=== PATIENT | female | born 1990 | race African-American/Black ===

== ENCOUNTER 2017-12-19 10:44 | Emergency (ER) | payer SELFPAY ==
[~2017-12-19] VITALS: Ht 162.6 cm; Wt 118.2 kg
[2017-12-19 10:48] VITALS: TEMP 99
[2017-12-19 11:12] LABS: COLLECTION METHOD CLEAN CATCH
[2017-12-19 11:17] LABS: BASO # 0.1 (0.0-0.2); BASO % 0.7 % (0.0-2.0); EOS # 0.1 (0.0-0.7); EOS % 1.7 % (0-4.0); GRAN # 3.8 (1.4-6.5); GRAN % 49.7 % (42.2-75.2); HEMATOCRIT 41.4 % (37.0-47.0); HEMOGLOBIN 13.8 g/dl (12.5-16.0); LYMPH % 39.8 % (20.0-51.0); MEAN CELL VOLUME 92 fl (80.0-100.0); MEAN CORPUSCULAR HEMOGLOBIN 31 pg (27.0-31.0); MEAN CORPUSCULAR HGB CONC 33 g/dl (33.0-37.0); MEAN PLATELET VOLUME 9.1 fl (7.4-10.4); MONO # 0.6 (0.1-0.6); MONO % 7.8 % (1.7-9.3); PLATELET COUNT 363 K/mm3 (130-400); RED BLOOD COUNT 4.49 M/mm3 (4.10-5.30)
[2017-12-19 11:27] LABS: MUCOUS Present /lpf; PH 6 (5-8); URINE APPEARANCE Hazy; URINE BACTERIA None Seen /hpf; URINE BILIRUBIN Negative (NEGATIVE); URINE BLOOD 2+ (NEGATIVE); URINE COLOR Yellow; URINE GLUCOSE Negative (NEGATIVE); URINE KETONE Negative (NEGATIVE); URINE LEUKOCYTE ESTERASE 3+ (NEGATIVE); URINE NITRATE Negative (NEGATIVE); URINE PROTEIN(semi-quant) 2+ (NEGATIVE); URINE UROBILINOGEN Negative (NEGATIVE)
[2017-12-19 11:33] LABS: ALBUMIN 4.6 gm/dL (3.5-5.0); BILIRUBIN,TOTAL 0.7 mg/dL (0.0-1.0); C-REACTIVE PROTEIN 5.2 mg/dL (0.0-0.9); CALCIUM 9.8 mg/dL (8.4-10.2); CREATININE, serum 1.03 mg/dL (0.52-1.25); POTASSIUM 4.2 mmol/L (3.4-5.0); TOTAL PROTEIN 9.1 gm/dL (6.4-8.2)
[2017-12-19] MEDS ORDERED: NORCO 325 MG-51 TAB PO (13:47)
[2017-12-19] MEDS ORDERED: COZAAR 50MG50 MG/TAB PO (13:47)
[2017-12-19] MEDS ORDERED: CEPHALEXIN500 M1 PO (13:47)
[2017-12-19 14:00] VITALS: BP 136/90; PULSE 84
== END 2017-12-19 14:02 | disposition home or self-care (01) ==
LOC: COL.ER 10:44
PROVIDERS: Physician Assistant
DX: N39.0 Urinary tract infection, site not specified (principal); I10 Essential (primary) hypertension; F12.90 Cannabis use, unspecified, uncomplicated
CPT/HCPCS: J0696; J1170; J2405; J7030; Q9967

== ENCOUNTER 2018-05-19 16:37 | Emergency (ER) | payer OTHER ==
[~2018-05-19] VITALS: Ht 162.6 cm; Wt 100.0 kg
[~2018-05-19 16:37] MED LIST: CEPHALEXIN500 M1 PO; COZAAR 50MG50 MG/TAB PO; NORCO 325 MG-51 TAB PO
[2018-05-19 16:41] VITALS: TEMP 98.2
[2018-05-19 17:09] LABS: COLLECTION METHOD CLEAN CATCH
[2018-05-19 17:30] LABS: BASO # 0.1 (0.0-0.2); BASO % 0.8 % (0.0-2.0); EOS # 0.3 (0.0-0.7); GRAN # 3.3 (1.4-6.5); GRAN % 53.7 % (42.2-75.2); HEMATOCRIT 42.5 % (37.0-47.0); HEMOGLOBIN 14.5 g/dl (12.5-16.0); LYMPH # 2.1 (1.2-3.4); LYMPH % 34.7 % (20.0-51.0); MEAN CELL VOLUME 91 fl (80.0-100.0); MEAN CORPUSCULAR HEMOGLOBIN 31 pg (27.0-31.0); MEAN CORPUSCULAR HGB CONC 34 g/dl (33.0-37.0); MEAN PLATELET VOLUME 9.3 fl (7.4-10.4); MONO # 0.3 (0.1-0.6); MONO % 5.5 % (1.7-9.3); PLATELET COUNT 351 K/mm3 (130-400); RED BLOOD COUNT 4.65 M/mm3 (4.10-5.30); REDCELL DISTRIBUTION WIDTH-CV 12.7 % (11.5-14.5)
[2018-05-19 17:32] LABS: MUCOUS Present /lpf; PH 6 (5-8); URINE APPEARANCE Hazy; URINE BACTERIA Rare /hpf; URINE BILIRUBIN Negative (NEGATIVE); URINE BLOOD 1+ (NEGATIVE); URINE COLOR Yellow; URINE GLUCOSE Negative (NEGATIVE); URINE KETONE Negative (NEGATIVE); URINE LEUKOCYTE ESTERASE Negative (NEGATIVE); URINE NITRATE Negative (NEGATIVE); URINE PROTEIN(semi-quant) 2+ (NEGATIVE); URINE UROBILINOGEN Negative (NEGATIVE)
[2018-05-19 17:40] LABS: ALBUMIN 4.3 gm/dL (3.5-5.0); BILIRUBIN,TOTAL 0.9 mg/dL (0.0-1.0); C-REACTIVE PROTEIN 0.6 mg/dL (0.0-0.9); CALCIUM 9.6 mg/dL (8.4-10.2); CREATININE, serum 1.19 mg/dL (0.52-1.25)
[2018-05-19] MEDS ORDERED: COZAAR100 MG PO (18:42)
[2018-05-19 20:04] VITALS: BP 122/84; PULSE 84
== END 2018-05-19 20:11 | disposition home or self-care (01) ==
LOC: COL.ER 16:37
PROVIDERS: Family Medicine
DX: I10 Essential (primary) hypertension (principal); R10.11 Right upper quadrant pain; R07.81 Pleurodynia; F17.210 Nicotine dependence, cigarettes, uncomplicated
CPT/HCPCS: J2270; J2405; J7030

== ENCOUNTER 2018-07-31 19:23 | Inpatient (IN) | payer SELFPAY | END 2018-08-02 17:00 | disposition home or self-care (01) | DRG 305 | LOC: COL.ER 19:23 → ICU 21:14 → MEDICAL 08-01 18:18 | PROVIDERS: ADMIT Internal Medicine | DX: I16.0 Hypertensive urgency (principal); I50.32 Chronic diastolic (congestive) heart failure; Z68.41 Body mass index [BMI] 40.0-44.9, adult; I11.0 Hypertensive heart disease with heart failure; J09.X2 Influenza due to identified novel influenza A virus with other respiratory manifestations; E66.01 Morbid (severe) obesity due to excess calories; Z23 Encounter for immunization; F17.210 Nicotine dependence, cigarettes, uncomplicated ==

== ENCOUNTER 2019-02-09 07:24 | Inpatient (IN) | payer OTHER ==
[2019-02-09] VITALS (13 sets, daily range): BP systolic 116–159; BP diastolic 86–116; PULSE 73–91; TEMP 97.8–98
[~2019-02-09] VITALS: Ht 162.6 cm; Wt 118.5 kg
[~2019-02-09 07:24] MED LIST changes: +COREG 6.256.25 MG/TA PO; +COREG12.5 MG PO; +COZAAR100 MG PO; +HCTZ12.5TAB PO; +NORVASC 10MG10 MG PO; +NORVASC 5MG5 MG/TAB PO; +TAMIFLU 75MG75 MG PO
[2019-02-09 08:36] LABS: BASO # 0.1 (0.0-0.2); BASO % 1.3 % (0.0-2.0); EOS # 0.4 (0.0-0.7); GRAN # 3.4 (1.4-6.5); GRAN % 54.1 % (42.2-75.2); HEMATOCRIT 40.2 % (37.0-47.0); HEMOGLOBIN 13.5 g/dl (12.5-16.0); LYMPH # 2.1 (1.2-3.4); LYMPH % 33.9 % (20.0-51.0); MEAN CELL VOLUME 94 fl (80.0-100.0); MEAN CORPUSCULAR HEMOGLOBIN 32 pg (27.0-31.0); MEAN CORPUSCULAR HGB CONC 34 g/dl (33.0-37.0); MEAN PLATELET VOLUME 8.7 fl (7.4-10.4); MONO # 0.3 (0.1-0.6); MONO % 4.4 % (1.7-9.3); PLATELET COUNT 290 K/mm3 (130-400); RED BLOOD COUNT 4.27 M/mm3 (4.10-5.30); REDCELL DISTRIBUTION WIDTH-CV 13.1 % (11.5-14.5)
[2019-02-09 08:41] LABS: INR 1.1 (0.8-3.0); PROTHROMBIN TIME 12.4 SECONDS (9.7-12.8)
[2019-02-09 08:45] LABS: ALANINE AMINOTRANSFERASE 40 U/L (9-52); ALBUMIN 4.3 gm/dL (3.5-5.0); ALKALINE PHOSPHATASE 76 U/L (50-136); ANION GAP 9 mmol/L (7-16); AST,SGOT 38 U/L (15-37); BILIRUBIN,TOTAL 0.8 mg/dL (0.0-1.0); BLOOD UREA NITROGEN 20 mg/dL (7-17); CALCIUM 9.1 mg/dL (8.4-10.2); CARBON DIOXIDE 23 mmol/L (22-30); CHLORIDE 108 mmol/L (98-107); CREATININE, serum 1.03 (0.52-1.25); GLUCOSE 104 mg/dL (74-106); POTASSIUM 4.3 mmol/L (3.4-5.0); SODIUM 139 mmol/L (137-145); TOTAL PROTEIN 7.8 gm/dL (6.4-8.2)
[2019-02-09 09:00] LABS: TROPONIN-I < 0.012 ng/mL (0.000-0.035)
--- NOTE | 2019-02-09 10:40 | NUR ---
Patient transferred to ICU4 via ED stretcher by AMNA Diana with no complications. Patient able to ambulate from stretcher to bed independently with no complications. IV lines/medication gtts assessed and secured. Full assessment completed. Patient has no complaints or concerns at this time. Call light and room phone placed within reach. Bed in lowest position. Side rails up x3.
--- NOTE | 2019-02-09 16:47 | NUR ---
Report called to AMNA Kapadia at this time.
--- NOTE | 2019-02-09 18:11 | NUR ---
Patient transfered to surgical bed 348 via wheelchair with no complications. Bed in lowest position. Side rails up x2. Call light given to patient. Personal belongings stored in closet at this time. Care handed off to AMNA Kapadia.
--- NOTE | 2019-02-09 18:33 | NUR ---
PATIENT ARRIVED TO UNIT AT 1805 FROM ICU. PATIENT HAS DX OF HYPERTENSION. PATIENT IS ALERT AND ORIENTED. VSS. PATIENT HAS 20G IV IN RIGHT HAND AND 20G IV IN LEFT AC. PATIENT HEART AND LUNG SOUNDS NORMAL. PATIENT DENIES PAIN AT THIS TIME. PATIENT ON 2L RESTRICTION WITH 500ML BEING WATER. PER ICU, PATIENT HAS ALREADY TAKEN IN 500ML OF WATER. PATIENT TO HAVE GARTORADE FOR REST OF SHIFT TO EQUAL 2L. PATIENT PLEASANT IN ROOM WITH DINNER ORDERED.
--- NOTE | 2019-02-09 22:00 | NUR ---
Pt. sitting up in bed at this time. Pt. is A&OX3, assessment complete. INT to lt. ac and rt. forearm patent. Pt. denies pain or other needs, call light within reach.
[2019-02-10 00:11] VITALS: BP 137/85; PULSE 69; TEMP 98
--- NOTE | 2019-02-10 06:23 | NUR ---
Pt. slept well through the night. Pt. remains A&OX3. INT's to lt. ac and rt. forearm patent. Pt. denies pain or other needs.
[2019-02-10 07:31] LABS: CREATININE, serum 1.04 (0.52-1.25); MAGNESIUM 2.1 mg/dL (1.6-2.3); POTASSIUM 3.5 mmol/L (3.4-5.0)
[2019-02-10 08:43] VITALS: BP 143/94; PULSE 72; TEMP 98.1
[2019-02-10] MEDS ORDERED: COREG12.5 MG PO (09:29)
[2019-02-10] MEDS ORDERED: COZAAR100 MG PO (09:29)
[2019-02-10] MEDS ORDERED: NORVASC 5MG5 MG/TAB PO (09:29)
[2019-02-10] MEDS ORDERED: HCTZ12.5TAB PO (09:30)
--- NOTE | 2019-02-10 09:49 | NUR ---
MARK attended clinical rounds. The patient is ready to discharge today, 02/10. The hospitalist discussed getting established with primary care. The patient reports that she would be interested with being set up at the [facility] in [place]. MARK then followed up with the patient to discuss discharge plan. The patient lives in [place] with her grandmother, Jacquelyn Quiñonez (ph#[phone]), and works at [email or web address]. She reports independence with ADLs and does not have any DME. The patient did not have primary care prior to hospitalization and she receives her medications at the [facility]. She reports that she was having difficulties affording one of her medications prior. The patient is self pay. MARK consulted Financial Counseling. The patient was prescribed four meds. MARK contacted the patient's preferred pharmacy and priced the meds. Total: $30.98. The patient reports that she is able to afford this. MARK then contacted [facility] in [place] and secured the patient and appointment for next Saturday, 02/16, 1599. MARK informed the patient and the community living coach of the appointment. MARK provided the patient with [facility]'s registration packet. MARK faxed the patient's medical records and discharge orders to [facility]. The patient plans to return back home with her grandmother upon discharge. No additional needs at this time. The patient plans to return home with her grandmother upon discharge.
--- NOTE | 2019-02-10 11:04 | NUR ---
Discharge instructions reviewed with patient, verbalized understanding. Discharged via wheelchair to auto/home at 1105.
== END 2019-02-10 11:05 | disposition home or self-care (01) | DRG 305 ==
LOC: COL.ER 07:24 → ICU 09:19 → SURG 18:09
PROVIDERS: Family Medicine; ADMIT Internal Medicine
DX: I16.0 Hypertensive urgency (principal); I50.32 Chronic diastolic (congestive) heart failure; Z68.41 Body mass index [BMI] 40.0-44.9, adult; I11.0 Hypertensive heart disease with heart failure; E66.01 Morbid (severe) obesity due to excess calories
CPT/HCPCS: 99223-AI; 99239; J1644; J1940; J7050

== ENCOUNTER 2021-09-12 03:13 | Emergency (ER) | payer OTHER ==
[~2021-09-12] VITALS: Ht 160 cm; Wt 113.6 kg
[2021-09-12 03:21] VITALS: TEMP 98
[2021-09-12] MEDS ORDERED: ZITHROMAX Z PA250 MG PO (03:59)
[2021-09-12] MEDS ORDERED: PROAIR HFA0.09 MG/AC IH (03:59)
[2021-09-12] MEDS ORDERED: PREDNISONE20 MG PO (03:59)
[2021-09-12 04:14] VITALS: BP 122/91; PULSE 105
== END 2021-09-12 04:20 | disposition home or self-care (01) ==
LOC: COL.ER 03:13
DX: J40 Bronchitis, not specified as acute or chronic (principal); Z87.891 Personal history of nicotine dependence
CPT/HCPCS: J7512

== ENCOUNTER 2021-12-27 05:43 | Emergency (ER) | payer OTHER ==
[~2021-12-27] VITALS: Ht 160 cm; Wt 113.6 kg
[~2021-12-27 05:43] MED LIST changes: +PREDNISONE20 MG PO; +PROAIR HFA0.09 MG/AC IH; +ZITHROMAX Z PA250 MG PO
[2021-12-27 06:02] VITALS: TEMP 99.3
[2021-12-27 06:36] LABS: COLLECTION METHOD CLEAN CATCH
[2021-12-27 07:00] LABS: MUCOUS Present (NOT PRESENT); PH 6 (5-8); URINE APPEARANCE Hazy (CLEAR/HAZY); URINE BACTERIA Occasional /hpf (NONE SEEN); URINE BLOOD Negative (NEGATIVE); URINE COLOR Yellow (YELLOW); URINE GLUCOSE Negative (NEGATIVE); URINE KETONE Negative (NEGATIVE); URINE NITRATE Negative (NEGATIVE); URINE PROTEIN(semi-quant) 2+ (NEGATIVE)
[2021-12-27] MEDS ORDERED: PAXLOVID CO-PA1 EACH PO (07:09)
[2021-12-27 08:01] VITALS: BP 173/125; PULSE 111
[2021-12-28] MEDS ORDERED: APRESOLINE 25MG25 MG PO (09:35)
[2021-12-28] MEDS ORDERED: COREG 6.256.25 MG/TA PO (09:35)
[2021-12-28] MEDS ORDERED: COZAAR100 MG PO (09:36)
[2021-12-28] MEDS ORDERED: NORVASC 5MG5 MG/TAB PO (09:36)
[2021-12-28] MEDS ORDERED: MUCINEX DM 30 M1 TE1 PO (09:36)
[2021-12-28] MEDS ORDERED: TESSALON P100 MG/CAP PO (09:36)
[2021-12-28] MEDS ORDERED: DECADRON6 MG PO (09:37)
[2021-12-28] MEDS ORDERED: LIPITOR 40MG TA40 MG PO (09:44)
== END 2021-12-27 08:13 | disposition home or self-care (01) ==
LOC: COL.ER 05:43
PROVIDERS: Family Medicine
DX: U07.1 COVID-19 (principal); N89.8 Other specified noninflammatory disorders of vagina; I10 Essential (primary) hypertension; Z87.891 Personal history of nicotine dependence; Z91.14 Patient's other noncompliance with medication regimen; Z79.899 Other long term (current) drug therapy; Z28.310 Unvaccinated for COVID-19
CPT/HCPCS: J0696

== ENCOUNTER 2021-12-27 12:26 | Observation (INO) | payer OTHER ==
[~2021-12-27] VITALS: Ht 160 cm; Wt 113.6 kg
[~2021-12-27 12:26] MED LIST changes: +PAXLOVID CO-PA1 EACH PO
[2021-12-27 13:36] LABS: CALCIUM 9.1 mg/dL (8.4-10.2); CREATININE, serum 1.19 mg/dL (0.57-1.11); POTASSIUM 3.8 mmol/L (3.5-4.5)
[2021-12-27 14:49] LABS: BASO # 0.1 K/mm3 (0.0-0.2); EOS % 0.6 % (0.0-4.0); GRAN # 3.6 K/mm3 (1.4-6.5); GRAN % 74.8 % (42.2-75.2); HEMATOCRIT 41.4 % (37.0-47.0); HEMOGLOBIN 13.7 g/dl (12.5-16.0); LYMPH # 0.5 K/mm3 (1.2-3.4); MEAN CELL VOLUME 92 fl (80.0-100.0); MEAN CORPUSCULAR HEMOGLOBIN 31 pg (27-31); MEAN CORPUSCULAR HGB CONC 33 g/dl (33.0-37.0); MONO # 0.6 K/mm3 (0.1-0.6); MONO % 12.2 % (1.7-9.3); PLATELET COUNT 274 K/mm3 (130-400); RED BLOOD COUNT 4.48 M/mm3 (4.10-5.30); REDCELL DISTRIBUTION WIDTH-CV 13.2 % (11.5-14.5)
[2021-12-27 16:29] LABS: ALBUMIN 3.7 gm/dL (3.5-5.0); BILIRUBIN,TOTAL 1.3 mg/dL (0.2-1.2); C-REACTIVE PROTEIN 0.72 mg/dL (0.00-0.50); MAGNESIUM 1.9 mg/dL (1.6-2.6); TOTAL PROTEIN 7.5 gm/dL (6.2-8.1)
[2021-12-27 16:50] LABS: THYROID STIMULATING HORMONE 1.555 uIU/mL (0.350-4.940)
[2021-12-27 17:04] LABS: BILIRUBIN,DIRECT 0.4 mg/dL (0.0-0.5)
[2021-12-27 18:41] VITALS: BP 160/122; PULSE 97; TEMP 99.2
[2021-12-27 20:00] VITALS: BP 166/119; PULSE 93; TEMP 98.2
[2021-12-28 00:54] VITALS: BP 136/84; PULSE 75; TEMP 98.7
[2021-12-28 01:17] LABS: TRICYCLIC ANTIDEPRESS URINE NEGATIVE
[2021-12-28 04:59] VITALS: BP 152/99; PULSE 74; TEMP 97.9
--- NOTE | 2021-12-28 06:27 | NUR ---
pt weaned to RA, up ad yeny in room. BP down to 136/84 after meds given @HS, urine screen sent to lab, no stool specimen yet
[2021-12-28 08:02] VITALS: BP 149/95; PULSE 80; TEMP 98.1
[2021-12-28 09:00] LABS: CHOLESTEROL RISK RATIO 5.6
[2021-12-28] MEDS ORDERED: APRESOLINE 25MG25 MG PO (09:35)
[2021-12-28] MEDS ORDERED: COREG 6.256.25 MG/TA PO (09:35)
[2021-12-28] MEDS ORDERED: MUCINEX DM 30 M1 TE1 PO (09:36)
[2021-12-28] MEDS ORDERED: NORVASC 5MG5 MG/TAB PO (09:36)
[2021-12-28] MEDS ORDERED: COZAAR100 MG PO (09:36)
[2021-12-28] MEDS ORDERED: TESSALON P100 MG/CAP PO (09:36)
[2021-12-28] MEDS ORDERED: DECADRON6 MG PO (09:37)
[2021-12-28] MEDS ORDERED: LIPITOR 40MG TA40 MG PO (09:44)
[2021-12-28 10:35] LABS: CLOSTRIDIUM DIFF A/B NEG; CLOSTRIDIUM DIFF A/B INTERP No C.diff present
== END 2021-12-28 15:34 | disposition home or self-care (01) ==
LOC: COL.ER 12:26 → MEDICAL 16:13
PROVIDERS: Nurse Practitioner Family; Personal Emergency Response Attendant; ADMIT Family Medicine
DX: J96.01 Acute respiratory failure with hypoxia (principal); I42.9 Cardiomyopathy, unspecified; I10 Essential (primary) hypertension; E78.5 Hyperlipidemia, unspecified; R19.7 Diarrhea, unspecified; I34.0 Nonrheumatic mitral (valve) insufficiency; F17.210 Nicotine dependence, cigarettes, uncomplicated
CPT/HCPCS: G0378; J1100; J1200; J1650; J1940; J2550; J3475; J8540; Q0222; Q9967

== ENCOUNTER 2023-08-13 10:15 | Inpatient (IN) | payer SELFPAY ==
[~2023-08-13] VITALS: Ht 162.7 cm; Wt 130.8 kg
[2023-08-13] VITALS (39 sets, daily range): BP systolic 112–205; BP diastolic 68–149; PULSE 83–105; TEMP 97.5–97.7; O2SAT 93–100
[~2023-08-13 10:15] MED LIST changes: +APRESOLINE 25MG25 MG PO; +DECADRON6 MG PO; +LIPITOR 40MG TA40 MG PO; +MUCINEX DM 30 M1 TE1 PO; +TESSALON P100 MG/CAP PO
[2023-08-13] MEDS ORDERED: Losartan 50 MG TAB PO ONE (11:45)
[2023-08-13] MEDS ORDERED: hydrALAZINE 10 MG TAB PO ONE (11:45)
[2023-08-13 13:30] LABS: BASO # 0.1 K/mm3 (0.0-0.2); EOS # 0.2 K/mm3 (0.0-0.7); EOS % 2.6 % (0.0-4.0); GRAN # 3.1 K/mm3 (1.4-6.5); GRAN % 53.7 % (42.2-75.2); HEMATOCRIT 42.3 % (37.0-47.0); HEMOGLOBIN 14.2 g/dl (12.5-16.0); LYMPH # 2.1 K/mm3 (1.2-3.4); LYMPH % 35.4 % (20.0-51.0); MEAN CELL VOLUME 96 fl (80.0-100.0); MEAN CORPUSCULAR HEMOGLOBIN 32 pg (27-31); MEAN CORPUSCULAR HGB CONC 34 g/dl (33.0-37.0); MEAN PLATELET VOLUME 8.8 fl (7.4-10.4); MONO # 0.4 K/mm3 (0.1-0.6); MONO % 6.8 % (1.7-9.3); PLATELET COUNT 274 K/mm3 (130-400); RED BLOOD COUNT 4.43 M/mm3 (4.10-5.30); REDCELL DISTRIBUTION WIDTH-CV 13.2 % (11.5-14.5)
[2023-08-13] MEDS ORDERED: Nitroglycerin/D5W 250 ML IV ONE (13:30)
[2023-08-13 13:50] LABS: ALBUMIN 3.7 gm/dL (3.5-5.0); BILIRUBIN,TOTAL 1.4 mg/dL (0.2-1.2); CALCIUM 9.3 mg/dL (8.4-10.2); CREATININE, serum 1.08 mg/dL (0.57-1.11); POTASSIUM 4.2 mmol/L (3.5-4.5); TOTAL PROTEIN 7.2 gm/dL (6.2-8.1)
[2023-08-13] MEDS ORDERED: *Potassium Replacement Protocol MC SCH (15:45)
--- NOTE | 2023-08-13 16:05 | NUR ---
Pt arrived to room ICU 2 at 1526. Pt ambulated from stretcher to bed without difficulty. Pt states she is coughing up some blood that started about 2 days ago. Pt states she started coughing about a week ago. Pt has nitro infusing on arrival. Pt has some 1+ edmea to BLE. BP remains elevated. Cardio consulted per orders. Pt oriented to room. Educated pt to call prior to getting out of bed. Pt vebalized understanding. Call light within reach. Will continue with POC.
[2023-08-13] MEDS ORDERED: Furosemide 40 MG/4 ML VIAL IV SCH (16:11)
[2023-08-13] MEDS ORDERED: Carvedilol 6.25 MG TAB PO SCH (17:00)
--- NOTE | 2023-08-13 20:16 | NUR ---
PT IS SITTING ON THE EDGE OF THE BED. SHE HAD JUST RETURNED FROM THE BEDSIDE COMMODE. SHE IS ALERT AND ORIENTED AND ABLE TO USE THE BEDSIDE COMMODE INDEPENDENTLY. SHE HAS NITRO INFUSING IN 20G LEFT AC. SARMAD OBRIEN IS AT THE BEDSIDE AND HAS NO COMPLAINTS AT THIS TIME.
[2023-08-13] MEDS ORDERED: Atorvastatin 40 MG TAB PO SCH (23:00)
[2023-08-14] VITALS (16 sets, daily range): BP systolic 126–172; BP diastolic 76–119; PULSE 74–95; TEMP 97.8–98.2; O2SAT 99
[2023-08-14] MEDS ORDERED: Acetaminophen 325 MG TAB PO PRN (03:15)
[2023-08-14 06:19] LABS: BASO % 0.4 % (0.0-2.0); EOS # 0.2 K/mm3 (0.0-0.7); EOS % 2.2 % (0.0-4.0); GRAN # 5.9 K/mm3 (1.4-6.5); GRAN % 72.9 % (42.2-75.2); HEMOGLOBIN 12.4 g/dl (12.5-16.0); LYMPH # 1.3 K/mm3 (1.2-3.4); LYMPH % 15.7 % (20.0-51.0); MEAN CELL VOLUME 93 fl (80.0-100.0); MEAN CORPUSCULAR HEMOGLOBIN 31 pg (27-31); MEAN CORPUSCULAR HGB CONC 34 g/dl (33.0-37.0); MONO # 0.7 K/mm3 (0.1-0.6); MONO % 8.4 % (1.7-9.3); PLATELET COUNT 274 K/mm3 (130-400); RED BLOOD COUNT 3.96 M/mm3 (4.10-5.30); REDCELL DISTRIBUTION WIDTH-CV 13.2 % (11.5-14.5)
[2023-08-14 06:23] LABS: HEMATOCRIT 36.8 % (37.0-47.0)
[2023-08-14 06:34] LABS: ALBUMIN 3.3 gm/dL (3.5-5.0); CALCIUM 9.3 mg/dL (8.4-10.2); CREATININE, serum 1.18 mg/dL (0.57-1.11); MAGNESIUM 1.8 mg/dL (1.6-2.6); PHOSPHOROUS 3.4 mg/dL (2.3-4.7); POTASSIUM 3.9 mmol/L (3.5-4.5)
--- NOTE | 2023-08-14 07:24 | NUR ---
Report recieved from AMNA Lo. Pt remains on Nitro gtt. Pt had uneventful night. Pt able to get up and go to commode independently. Call light within reach. Will continue with POC.
[2023-08-14] MEDS ORDERED: Nitroglycerin/D5W 250 ML IV SCH (08:30)
[2023-08-14] MEDS ORDERED: Carvedilol 25 MG TAB PO SCH (08:45)
[2023-08-14] MEDS ORDERED: Spironolactone 25 MG TAB PO SCH (08:45)
[2023-08-14] MEDS ORDERED: amLODIPine 5 MG TAB PO SCH (09:00)
[2023-08-14] MEDS ORDERED: Losartan 50 MG TAB PO SCH (09:00)
[2023-08-14] MEDS ORDERED: Furosemide 40 MG/4 ML VIAL IV SCH (09:00)
[2023-08-14] MEDS ORDERED: hydroCHLOROthiazide 12.5 MG CAP PO SCH (09:00)
[2023-08-14] MEDS ORDERED: Potassium Bicarbonate/Citrate 20 MEQ Effervescent TAB PO ONE (09:00)
[2023-08-14] MEDS ORDERED: amLODIPine 5 MG TAB PO ONE (09:30)
[2023-08-14] MEDS ORDERED: hydrALAZINE 25 MG TAB PO SCH (09:30)
--- NOTE | 2023-08-14 09:53 | NUR ---
mortar worker and Dr. Bah met with patient during interdisciplinary rounding. Patient will need to see cardiology for additional testing prior to discharge. SW met with patient to discuss discharge planning. Patient lives in [place]. Best point of contact is sister, Fiona, P# [phone] and Jacquelyn (grandmother) P# [phone]. PCP is Brendon, pharmacy is [facility]. No issues affording medications. Patient did not have a DPOA-HC but was interested in completing one. SW assisted patient with the form, patient appointed Fiona as primary and Nigel (boyfriend) as secondary. RN and SW witnessed patient signature. SW made copies, placed copy in chart, provided original and copies to patient. No DME, independent with ADLS. Patient transports herself to and from appointments. Patient would like to return home at time of discharge. Discharge plan: Home
--- NOTE | 2023-08-14 10:01 | NUR ---
Patient informed transition social worker that she has [facility] insurance. SW notified financial counselor and nanny/household manager as patient was currently listed as self-pay. Discharge plan: Home
[2023-08-14 13:25] LABS: HIV 1/2 Antibodies Non-Reactive; HIV-1p24 Antigen Non-Reactive
--- NOTE | 2023-08-14 14:15 | NUR ---
Initial visit; Patient thanked Rubber Press Operator for looking in on her and smiled at Rubber Press Operator when she said she is available for her.
--- NOTE | 2023-08-14 17:15 | NUR ---
Report received from TRADE SHOW SPECIALIST Silvia. Pt up to room at this time. A/O x4, steady gait around room independent, tolerating deit well. No needs at this time, will continue to monitor.
--- NOTE | 2023-08-14 17:15 | NUR ---
Report called to AMNA De Souza. All questions answered. Pt escroted to room 318 via wheelchair. Nolvia met pt in room.
--- NOTE | 2023-08-14 20:00 | NUR ---
Initial shift assessment done- sitting at side of bed-- getting ready to shower/walks independently,steady on feet, VSS, pleasant, no requests, Will be NPO after MN for jagjit in AM, tele on-NSR,,B/p stable.
[2023-08-15] VITALS (8 sets, daily range): BP systolic 124–146; BP diastolic 79–96; PULSE 76–94; TEMP 97.4–98.5
[2023-08-15 05:33] LABS: BASO % 0.5 % (0.0-2.0); EOS # 0.4 K/mm3 (0.0-0.7); EOS % 5.9 % (0.0-4.0); GRAN # 3.3 K/mm3 (1.4-6.5); GRAN % 51.5 % (42.2-75.2); HEMOGLOBIN 13.1 g/dl (12.5-16.0); LYMPH # 2.1 K/mm3 (1.2-3.4); LYMPH % 33.1 % (20.0-51.0); MEAN CELL VOLUME 92 fl (80.0-100.0); MEAN CORPUSCULAR HEMOGLOBIN 32 pg (27-31); MEAN CORPUSCULAR HGB CONC 35 g/dl (33.0-37.0); MEAN PLATELET VOLUME 8.8 fl (7.4-10.4); MONO # 0.6 K/mm3 (0.1-0.6); MONO % 8.7 % (1.7-9.3); PLATELET COUNT 278 K/mm3 (130-400); RED BLOOD COUNT 4.13 M/mm3 (4.10-5.30); REDCELL DISTRIBUTION WIDTH-CV 13.2 % (11.5-14.5)
[2023-08-15 05:49] LABS: ALBUMIN 3.1 gm/dL (3.5-5.0); CALCIUM 9.4 mg/dL (8.4-10.2); CREATININE, serum 1.17 mg/dL (0.57-1.11); MAGNESIUM 1.9 mg/dL (1.6-2.6); POTASSIUM 3.9 mmol/L (3.5-4.5)
--- NOTE | 2023-08-15 05:52 | NUR ---
Quiet night- slept well all night- Tele on,, NPO for jagjit
--- NOTE | 2023-08-15 07:32 | NUR ---
upon entering room patient is lying on her right side sleeping. after patient woke up head to toe assessment and vital signs were complete. patient complained of a slight headache and rated the pain a 2/10, primary nurse was notified. and before leaving room patients bed was placed in lowest position and call light within reach.
[2023-08-15] MEDS ORDERED: Spironolactone 25 MG TAB PO SCH (08:00)
[2023-08-15] MEDS ORDERED: Regadenoson 0.08 MG/ML 5 ML SYRINGE IV SCH (08:45)
[2023-08-15] MEDS ORDERED: amLODIPine 10 MG TAB PO SCH (09:00)
[2023-08-15] MEDS ORDERED: amLODIPine 5 MG TAB PO SCH (09:22)
--- NOTE | 2023-08-15 11:39 | NUR ---
hog worker spoke with Tune Up Mechanic Delores who reports she will meet with patient to discuss disability. SW spoke with RADHA Quintana who reports patient terminated her insurance on 06/10/23, so she does not have [facility]. Discharge Plan: Home
[2023-08-15] MEDS ORDERED: Potassium Bicarbonate/Citrate 20 MEQ Effervescent TAB PO ONE (12:00)
[2023-08-15] MEDS ORDERED: APRESOLINE 25MG25 MG PO (12:31)
[2023-08-15] MEDS ORDERED: ISORDIL 20MG20 M1 PO (12:31)
[2023-08-15] MEDS ORDERED: COREG 25MG25 MG/TAB PO (12:31)
[2023-08-15] MEDS ORDERED: ALDACTONE 25MG25 M1 PO (12:32)
[2023-08-15] MEDS ORDERED: LASIX 40MG TABL40 MG PO (12:32)
[2023-08-15] MEDS ORDERED: Isosorbide Dinitrate 10 MG TAB PO SCH (14:00)
[2023-08-16 04:10] LABS: ANGIOTENSIN CONVERTING ENZYME 27 U/L (14-82)
[2023-08-16] MEDS ORDERED: Furosemide 40 MG TAB PO SCH (09:00)
== END 2023-08-15 16:37 | disposition home or self-care (01) | DRG 291 ==
LOC: COL.ER 10:15 → ICU 13:20 → MEDICAL 08-14 16:30
PROVIDERS: Nurse Practitioner; Physician Assistant; ADMIT Internal Medicine
DX: I11.0 Hypertensive heart disease with heart failure (principal); I50.23 Acute on chronic systolic (congestive) heart failure; J96.01 Acute respiratory failure with hypoxia; I16.1 Hypertensive emergency; R04.2 Hemoptysis; Z68.43 Body mass index [BMI] 50.0-59.9, adult; Z20.822 Contact with and (suspected) exposure to COVID-19; I34.0 Nonrheumatic mitral (valve) insufficiency; E78.5 Hyperlipidemia, unspecified; E66.01 Morbid (severe) obesity due to excess calories; Z87.442 Personal history of urinary calculi; Z87.891 Personal history of nicotine dependence; Z79.899 Other long term (current) drug therapy
CPT/HCPCS: A9500-JZ; J1940; J2305; J2785